=== PATIENT | female | born 1970 | race Two or more races ===

== ENCOUNTER 2017-06-09 08:53 | Outpatient (CLI) | payer OTHER | END 2017-06-09 09:05 | disposition home or self-care (01) | LOC: RAD 08:53 | DX: M05.70 Rheumatoid arthritis with rheumatoid factor of unspecified site without organ or systems involvement (principal) ==

== ENCOUNTER 2017-07-05 08:11 | Outpatient (CLI) | payer OTHER ==
[2017-07-18] MEDS ORDERED: ATENOLOL100 MG PO (18:51)
[2017-07-18] MEDS ORDERED: TIROSINT25 MCG PO (18:51)
[2017-07-18] MEDS ORDERED: SIMVASTATIN10 MG PO (18:52)
== END 2017-07-05 14:20 | disposition home or self-care (01) ==
LOC: NUCLEAR 08:11
DX: I11.9 Hypertensive heart disease without heart failure (principal)

== ENCOUNTER → 2017-07-18 | Emergency (ER) | payer OTHER ==
[~2017-07-18] VITALS: Ht 162.6 cm; Wt 108.9 kg
[~2017-07-18] MED LIST: ATENOLOL100 MG PO; SIMVASTATIN10 MG PO; TIROSINT25 MCG PO
== END | disposition home or self-care (01) ==
LOC: ER 18:07
DX: S61.223A Laceration with foreign body of left middle finger without damage to nail, initial encounter (principal); W26.0XXA Contact with knife, initial encounter; Y93.89 Activity, other specified; Y92.89 Other specified places as the place of occurrence of the external cause; Y99.8 Other external cause status

== ENCOUNTER → 2017-07-28 | Emergency (ER) | payer OTHER ==
[~2017-07-28] VITALS: Ht 162.6 cm; Wt 108.0 kg
== END | disposition home or self-care (01) ==
LOC: ER 17:32
DX: Z48.02 Encounter for removal of sutures (principal)